=== PATIENT | male | born 1985 | race Hispanic/Latino ===

== ENCOUNTER 2024-07-20 20:32 | Emergency (ER) | payer SELFPAY ==
[2024-07-20] MEDS ORDERED: Dexamethasone 10 MG/ML VIAL ONE (20:48)
[2024-07-20] MEDS ORDERED: AMOXicillin 250 MG CAP ONE (20:48)
[2024-07-20] MEDS ORDERED: HYDROcodone/Acetaminophen 10/325 mg Tablet ONE (20:51)
== END 2024-07-20 21:30 | disposition home or self-care (01) ==
LOC: BURERS 20:32
DX: K02.9 Dental caries, unspecified (principal)
CPT/HCPCS: 99283; J1100